=== PATIENT | female | born 1965 | race Caucasian/White ===

== ENCOUNTER 2016-09-02 14:56 | Day surgery (SDC) | payer BC ==
[~2016-09-02] VITALS: Ht 167.6 cm; Wt 56.7 kg
[2016-09-02 15:36] VITALS: BP 111/60; PULSE 64; TEMP 97.6
[2016-09-02] MEDS ORDERED: OMEGA-3 1000 MG1 CAP PO (15:38)
[2016-09-02] MEDS ORDERED: MULTIPLE VITAMI1 TA5 PO (15:38)
[2016-09-02 16:40] VITALS: BP 120/80; PULSE 74; TEMP 97.2
[2016-09-02 16:55] VITALS: BP 93/63; PULSE 52
[2016-09-02 17:10] VITALS: BP 93/59; PULSE 58
[2016-09-02 17:25] VITALS: BP 98/61; PULSE 59
== END 2016-09-02 17:37 | disposition home or self-care (01) ==
LOC: SDCO 14:56
DX: Z12.11 Encounter for screening for malignant neoplasm of colon (principal); K64.0 First degree hemorrhoids; Z68.21 Body mass index [BMI] 21.0-21.9, adult
CPT/HCPCS: OP; J2250; J2405; J3010; J7030

== ENCOUNTER → 2019-10-28 | Outpatient (CLI) | payer BC ==
[~2019-10-28] MED LIST: MULTIPLE VITAMI1 TA5 PO; OMEGA-3 1000 MG1 CAP PO
== END ==
LOC: COL.RAD 14:30
DX: R19.09 Other intra-abdominal and pelvic swelling, mass and lump (principal)

== ENCOUNTER → 2020-10-16 | Outpatient (CLI) | payer BC | LOC: MC.RAD 10:07 | DX: Z12.31 Encounter for screening mammogram for malignant neoplasm of breast (principal) ==